=== PATIENT | male | born 1960 | race Caucasian/White ===

== ENCOUNTER 2016-07-13 17:33 | Emergency (ER) | payer OTHER ==
[~2016-07-13 17:33] MED LIST: FOLIC ACID PO; HCTZ PO; LIPITOR PO; LOPRESSOR PO; NORVASC PO; THIAMINE HCL100 MG PO; ZOCOR PO
== END 2016-07-13 20:35 | disposition home or self-care (01) ==
LOC: CED 17:33
DX: S81.812A Laceration without foreign body, left lower leg, initial encounter (principal); I10 Essential (primary) hypertension; W20.8XXA Other cause of strike by thrown, projected or falling object, initial encounter; Y92.69 Other specified industrial and construction area as the place of occurrence of the external cause; Y99.0 Civilian activity done for income or pay; Z23 Encounter for immunization
CPT/HCPCS: 12034; 90471; 90715; 99283